=== PATIENT | female | born 1990 | race Caucasian/White ===

== ENCOUNTER 2024-10-25 11:07 | Outpatient (AMB) | payer OTHER, MEDICAID, SELFPAY ==
[2024-10-25 11:26] VITALS: BP 117/68; PULSE 83; RESP 18; TEMP 36.2; O2SAT 98; BMI 23.6
--- NOTE | 2024-10-25 11:26 | AMB.GYNCLNOT ---
Vital Signs 10/25/24 11:26 Height 1.57 m Height Method Stated Weight 58.74 kg Weight Measurement Method Standing Scale BMI 23.6 BP 117/68 Blood Pressure Source Automatic Cuff Blood Pressure Location Left Upper Arm Position Sitting Respiration 18 Pulse 83 Pulse Source Monitor Temp 97.2 F Temp Source Oral Pulse Oximetry (%) 98 Oxygen Delivery Method Room Air Allergies/Home Meds Allergies & Medications Allergies No Known Allergies Allergy (Verified 10/25/24 11:27) Medication Reconciliation fluconazole 150 mg tablet 150 mg PO Q3D 2 doses #2 tabs 10/25/24 [Rx] metronidazole 500 mg tablet 500 mg PO BID 7 days #14 tabs 10/25/24 [Rx] clomiphene citrate 50 mg tablet 50 mg PO QDAY 5 days #5 tabs 10/27/24 [Rx] Intake Visit Data Collection New Patient or Established: Established Patient (seen at [facility] within 3 years) Reason for Visit:: Possible vaginal infection with foul odor discharge after periods, cramps one week after menstruation, swelling in area of previous excision after periods Seen by Clinical Staff ONLY (RN/MA): No Blacking Machine Operator Required: No Do You Feel Safe at Home: Yes Authorities Contacted: N/A PCP or OBGYN visit in last 3 months: Yes Hx Now: No Are you currently on any form of Control: No Last menstrual period: 10/12/24 Pain Present Currently: No Pain Scale Used: Mcfarland-Kern/Numerical Pain scale:: 0 Smoking Status Smoking Status: Never smoker Lead Generation Representative history Lead Generation Representative History Menstrual regularity: regular Flow: normal Monthly: Yes Age at menarche: 13 Menopausal: No Currently sexually active: Yes Questionnaires Covid-19 Vaccine Questionnaire Has patient been vacinated for Covid-19 Have you been vacinated for Covid-19: Yes PHQ-9 PHQ-2 Over the last 2 weeks, how often have you been bothered by any of the following problems? 1. Little interest or pleasure in doing things: not at all 2. Feeling down, depressed, or hopeless: not at all Total score: 0 PHQ-9 3. Trouble falling or staying asleep, or sleeping too much: Not at all 4. Feeling tired or having little energy: Not at all 5. Poor appetite or overeating: Not at all 6. Feeling bad about yourself - or that you are a failure or have let yourself or your family down: Not at all 7. Trouble concentrating on things, such as reading the newspaper or watching television: Not at all 8. Moving or speaking so slowly that other people could have noticed? - Or the opposite - being so fidgety or restless that you have been moving around a lot more than usual: not at all 9. Thoughts that you would be better off or of hurting yourself in some way: Not at all Total score: 0 If you checked off any problems, how difficult have these problems made it for you to do your work, take care of things at home, or get along with other people?: not difficult at all Source: Developed by Drs. Han Browning, Indu Kerr, Freddy Little and colleagues, with an educational rafael from [employer]. Depression screen completed yes Social History Living Situation History Marital Status: Lives With: Family Housing: House Tobacco History Smoking Status: Never smoker Second Hand Smoke Exposure: No Alcohol History Alcohol Intake: Never Domestic Abuse History Do You Feel Safe at Home: Yes Past Medical History Past Medical History Have you ever been diagnosed with any of the following: Neurological Problems Seizures: No Cardiology Problems Congestive Heart Failure: No Respiratory Problems Chronic Obstructive Pulmonary Disease (COPD): No Stomache/Intestinal Problems Hepatitis: No Gastroesophageal Reflux Disease: Yes (tums as needed) Genital/Urinary Problems Renal Disease: No Reproductive Problems Endometriosis: No Genital Herpes: No Gonorrhea: No Pelvic Inflammatory Disease: No Previous Pregnancies: Yes (x2 sections) Syphilis: No Uterine Prolapse: No Endocrine Problems Diabetes Mellitus Type 1: No Diabetes Mellitus Type 2: No Blood Problems Clotting Problems: No Psychologic Problems Schizophrenia: No Recreational Drug Use: No Bipolar Disorder: No Depression: No Anxiety: Yes Behavior Problems: No Self-Mutilation: No Attention Deficit Disorder: No Attention Deficit Hyperactivity Disorder: No Depression: No Post Traumatic Stress Disorder: No Eating Disorder: No Other Problems Autism: No Blood Transfusions: No Blood Transfusion Reaction: No Anesthesia Reactions: No Organ Transplant: No MRSA: No VRSA: No Vancomycin-Resistant Enterococci: No Human Immunodeficiency Virus (HIV): No Chicken Pox: No Measles: No Mumps: No Rubella (Faroese Measles): No Pertussis: No Clostridium Difficile: No Cancer: No History of Present Illness HPI Narrative Charity Juárez, a patient with a history of in 2019, presents for a routine pap smear and reports concerns of recurrent vaginal discharge and pelvic pain. She is also considering future . The patient describes experiencing foul-smelling vaginal discharge, particularly after her menstrual periods. This symptom is intermittent, sometimes resolving on its own. She denies associated itching. Additionally, Ms. Juárez reports experiencing significant pelvic cramps approximately one week after her menstrual period ends. These cramps can be severe enough to cause her to hunch over and typically last for 1-2 days. She notes that ibuprofen provides some relief for these symptoms. Ms. Juárez also mentions a history of endometriosis excision and states that she sometimes feels swelling in the same area after her period. She expresses interest in becoming in the near future and recalls previously using Clomid to conceive. The patient reports no issues with spontaneous conception in the past but is concerned about optimizing her fertility. Obstetric History - GPAL: A0 L2 - history: - Delivered a son in 2019, likely via (based on mention of scar) - Previous , details not provided Medical History - Endometriosis, previously treated with excision Surgical History - section in 2019 - Excision procedure (likely for endometriosis), date unspecified Medications and Supplements - Ibuprofen - Taken for cramps after menstrual period - Provides relief - Clomid - Previously prescribed for fertility - Not used correctly the first time Social History - Occupation: Works daily except Mondays - Living Situation: Lives with family (mentioned visiting doctor's house on Thursday) - Marital/Relationship Status: ( mentioned) - Children: Has at least one son (born in 2019) - Education: Child attends school (mentioned school drop-off) Review of Systems Genitourinary: Positive for vaginal discharge with foul odor after menstrual periods. Negative for itching. Musculoskeletal: Positive for cramps one week after menstrual period, lasting 1-2 days. Cramps improve with ibuprofen. Other: Positive for swelling in the area of previous excision after menstrual period. Exam General General Appearance: alert, in no apparent distress and healthy appearing Head Head exam: atraumatic Neck Neck exam: Present normal inspection and trachea midline Chest Chest inspection: Present normal inspection and symmetric chest wall rise External exam: Present normal external exam; Absent tenderness Speculum exam: Present vaginal discharge (Thick white); Absent vaginal bleeding Bimanual exam: Present normal bimanual exam; Absent cervical motion tenderness or adnexal tenderness Neuro Neurological exam: Present oriented X3 Psych Psychiatric exam: Present normal affect and normal mood Assessment & Plan Diagnosis / Problem List (1) Pelvic and perineal pain: Status: Acute (2) Abnormal uterine and vaginal bleeding, unspecified: Status: Acute (3) Acute vaginitis: Status: Acute (4) Other specified conditions associated with female genital organs and menstrual cycle: Status: Acute (5) Endometriosis, unspecified: Status: Acute (6) Mittelschmerz: Status: Acute (7) Encounter for fertility preservation counseling: Status: Acute (8) Encounter for fertility testing: Status: Acute (9) Encounter for preconception consultation: Status: Acute Plan Charity Juárez, female patient with history of and endometriosis, presents for routine gynecological care, complaining of post-menstrual vaginal discharge with foul odor and abdominal cramps one week after menses. Suspected vaginal infection Assessment: Patient reports foul-smelling vaginal discharge occurring after menstruation, which sometimes resolves spontaneously. This presentation is suggestive of a possible vaginal infection, with bacterial vaginosis (BV) and yeast infection being the primary differential diagnoses. The cyclical nature of symptoms, correlating with hormonal changes during the menstrual cycle, further supports this assessment. Plan: - Perform vaginal culture swab - Prescribe treatment for both bacterial vaginosis and yeast infection - Educate patient on potential irritants (e.g., fragranced products, harsh soaps) and recommend avoiding them - Advise adding vinegar to laundry rinse cycle for underwear to remove detergent residue - Follow up after treatment completion to ensure resolution of symptoms Post-menstrual abdominal cramps Assessment: Patient reports experiencing significant abdominal cramps for 1-2 days, occurring one week after menstruation ends. Differential diagnoses include mittelschmerz (ovulation pain), endometriosis flare-up, or possible complications related to previous scar. The pain responds to ibuprofen, which supports an inflammatory process. Given the patient's history of endometriosis and previous excision, this could represent a recurrence or flare-up of endometriotic lesions. Plan: - Order pelvic ultrasound to evaluate for follicular cysts or other pelvic pathology - Recommend continued use of ibuprofen for pain management as needed - Discuss potential hormonal treatment options if symptoms persist or worsen - Follow up after ultrasound results to discuss findings and further management Family planning Assessment: Patient expresses desire for future and inquires about options to improve fertility. She has a history of using Clomid for ovulation induction in the past. Given her current symptoms and desire for , management should focus on optimizing her gynecological health while preserving fertility. Plan: - Provide standing prescription for Clomid 50 mg PO daily, to be taken days 5-9 of menstrual cycle when ready to conceive - Educate patient on proper timing of Clomid use and importance of cycle tracking - Advise against use of ovulation-suppressing treatments (e.g., Lupron) at this time - Recommend natural conception attempts with ovulation monitoring - Follow up to reassess fertility status and discuss further interventions if needed Office Procedures OB Clinic LOC & Office Proc's Nursing/Assessment Patient Status: Established Patient OB Clinic Nursing Assessment: BP Monitoring, Medication Reconciliation, Update PMH in EMR and Vital Signs OB Clinic Coordination of Care: Consent,records obtained, informed consent, Education Simp Pt/Fam, Lab and Imaging orders and Staff clarify orders Miscellaneous Interventions: Pelvic/Pap Smear Set up Established Patient Charge Established Patient Point Assignment: 110 Established Patient Point Charge: EP Level 3 (80-115) In Clinic Procedures Pap Smear: Yes ACID ADJUSTER: Papsmear Pap Smear Procedure Chaparone in room during procedure?: Yes Post-op diagnosis procedure note: Same Papsmear completed: yes
== END 2024-10-25 11:46 | disposition home or self-care (01) ==
LOC: HODSOBC 11:07
PROVIDERS: PCP Obstetrics & Gynecology; Referring Provider Obstetrics & Gynecology; Supervising Provider Obstetrics & Gynecology; Visit Provider Obstetrics & Gynecology
DX: N76.0 Acute vaginitis (principal); N93.9 Abnormal uterine and vaginal bleeding, unspecified; N80.9 Endometriosis, unspecified; N94.0 Mittelschmerz; Z31.62 Encounter for fertility preservation counseling; Z31.69 Encounter for other general counseling and advice on procreation; Z31.41 Encounter for fertility testing
CPT/HCPCS: 99213; Q0091; G0463

== ENCOUNTER → 2024-10-31 | Outpatient (CLI) | payer OTHER, MEDICAID, SELFPAY ==
--- NOTE | 2024-10-31 08:45 | XR_ITS ---
Examination: Pelvic ultrasound, transabdominal, complete Technique: Transabdominal ultrasound of the pelvis performed using grayscale imaging Date and time of exam: October 31, 2024 0830 hours INDICATIONS: Onset pelvic pain beginning 2 months ago FINDINGS: Uterus 7.6 cm endometrial stripe 14 mm, increased vascularity to the uterus No uterine mass or intrauterine gestation Right ovary 3.6 cm arterial flow Left ovary 3.0 cm arterial flow 10 mm follicular cyst IMPRESSION: Increased vascularity to the uterus clinical correlation advised
== END | disposition home or self-care (01) ==
LOC: CDIM 08:22
PROVIDERS: Referring Provider Obstetrics & Gynecology; Visit Provider Obstetrics & Gynecology
DX: R10.2 Pelvic and perineal pain (principal)
CPT/HCPCS: 76856